=== PATIENT | male | born 1980 | race Caucasian/White ===

== ENCOUNTER 2018-09-01 02:10 | Emergency (ER) | payer SELFPAY ==
[~2018-09-01] VITALS: Ht 177.8 cm; Wt 77.0 kg
[2018-09-01 09:35] VITALS: BP 133/85
== END 2018-09-01 09:38 | disposition home or self-care (01) ==
LOC: ER 02:10
DX: S01.01XA Laceration without foreign body of scalp, initial encounter (principal); W22.8XXA Striking against or struck by other objects, initial encounter; Y93.89 Activity, other specified; Y92.89 Other specified places as the place of occurrence of the external cause; Y99.8 Other external cause status
CPT/HCPCS: 12001; 99284

== ENCOUNTER 2020-11-15 22:56 | Emergency (ER) | payer SELFPAY ==
[~2020-11-15] VITALS: Ht 172.7 cm; Wt 69.0 kg
[2020-11-15 22:57] VITALS: BP 150/90
[2020-11-15] MEDS ORDERED: BACITRACIN ZINC OINT UDPKT TOP ONE (23:45)
== END 2020-11-16 01:15 | disposition left against medical advice (07) ==
LOC: ER 22:56
DX: S09.8XXA Other specified injuries of head, initial encounter (principal); W22.8XXA Striking against or struck by other objects, initial encounter; Y93.89 Activity, other specified; Y92.89 Other specified places as the place of occurrence of the external cause; Y99.8 Other external cause status; F10.129 Alcohol abuse with intoxication, unspecified; Y90.0 Blood alcohol level of less than 20 mg/100 ml
CPT/HCPCS: 99283